=== PATIENT | female | born 1985 | race Caucasian/White ===

== ENCOUNTER 2016-08-28 09:07 | Emergency (ER) | payer OTHER ==
--- NOTE | 2016-08-28 09:19 | ED Physician Documentation ---
General Adult - HISTORIAN Historian: patient, paramedics - HPI Stated Complaint: seizure Chief Complaint: General Adult Additional Information: Had "non-epileptic" seizure at work. Just wanted to go homr after, but work automayically calls ambulance. Says she is under a lot of stress. - ROS CONST: no problems - PAST HX Past History: other (epileptic and non-epileptic seizures) Surgeries/Procedures: other (PE tubes, mandibular oosteotomy, left wrist for "tendonitis") Allergies/Adverse Reactions: Allergies Allergy/AdvReac Type Severity Reaction Status Date / Time phosphenytoin AdvReac Intermediate Shortness Uncoded 08/28/16 09:13 of Breath Home Medications: Ambulatory Orders Medication Instructions Recorded Carbamazepine [Carbatrol] 300 mg PO BID 09/11/13 Mirtazapine [Remeron] 15 mg PO HS 09/11/13 Topiramate [Topamax] 50 mg PO D 07/26/15 Topiramate [Topamax] 100 mg PO HS 07/26/15 Citalopram Hydrobromide [Celexa] 40 mg PO QD #30 tablet 10/02/15 Lacosamide [Vimpat] 100 mg PO BID 01/10/16 - SOCIAL HX Smoking History: quit greater than 1 year, cigarettes Alcohol Use: none Drug Use: none - FAMILY HX Family History: No - VITAL SIGNS Vital Signs: Vital Signs Temp Pulse Resp BP Pulse Ox 136/73 02/08/16 08:54 - REVIEWED ASSESSMENTS Nursing Assessment Reviewed: Yes Vitals Reviewed: Yes General Adult Physical Exam - PHYSICAL EXAM GENERAL APPEARANCE: no distress EENT: eye inspection normal, ENT inspection normal, pharynx normal (Mallampat 2) , YOBANI NECK: normal inspection, supple RESPIRATORY: no resp distress, breath sounds normal CVS: reg rate & rhythm, heart sounds normal, no murmur RECTAL: deferred BACK: normal inspection SKIN: warm/dry, normal color EXTREMITIES: no evidence of injury, no edema, other (L leg shorter, wearing custom shoe) NEURO: CN's nml as tested, motor nml, sensation nml, other (reflexes 2+ throughout) Discharge Clincal Impression: Pseudoseizure Home Medications: Ambulatory Orders Carbamazepine [Carbatrol] 300 mg PO BID 09/11/13 Mirtazapine [Remeron] 15 mg PO HS 01/15/14 Topiramate [Topamax] 50 mg PO D 07/26/15 Topiramate [Topamax] 100 mg PO HS 07/26/15 Citalopram Hydrobromide [Celexa] 40 mg PO QD #30 tablet 10/02/15 Lacosamide [Vimpat] 100 mg PO BID 01/10/16 Condition: Good Disposition: 01 HOME, SELF-CARE Decision to Admit: NO Decision Time: 09:20
[2016-08-28 09:36] VITALS: BP 108/76
== END 2016-08-28 09:34 | disposition home or self-care (01) ==
LOC: ED 09:07
DX: G40.89 Other seizures (principal)
CPT/HCPCS: 99282; 99284

== ENCOUNTER 2016-09-05 08:22 | Emergency (ER) | payer OTHER ==
[2016-09-05] MEDS: LORazepam 1 MG TABLET PO ONE (08:45)
--- NOTE | 2016-09-05 08:49 | ED Physician Documentation ---
Seizure - HISTORIAN Historian: patient, paramedics - HPI Stated Complaint: Seizure Chief Complaint: Seizure Additional Information: seizure at work-felt it coming on lay down,seized for 4 min-tnsf ed via ems. they roport have tnsf this t for similar several time-have never seen her seize or being post ictal Last known Well Date: 09/05/16 Last Known Well Time: 08:00 Last known Well Code/Unknown Code: Known Witnessed By: bystander Preceding Symptoms: denies: recent illness, recent alcohol intake, recent drug use, sleep deprivation Character of Seizure(s): unresponsiveness, "shaking all over" Location of Injury: none Further Comments: no - ROS NEURO/PSYCH: headache (very mild-is on her seizure meds as directed by her neurologists) EYES/ENT: none CVS/RESP: none GI/: denies: adominal pain MS/SKIN/LYMPH: none - PAST HX Previous seizure/seizure disorder: long-standing, occasional Etiology: idiopathic Other History: psychiatric disorder (anxiety depdression seizures ) Immunizations: denies: influenza Allergies/Adverse Reactions: Allergies Allergy/AdvReac Type Severity Reaction Status Date / Time phosphenytoin AdvReac Intermediate Shortness Uncoded 09/05/16 08:31 of Breath Home Medications: Ambulatory Orders Medication Instructions Recorded Carbamazepine [Carbatrol] 300 mg PO BID 09/11/13 Mirtazapine [Remeron] 15 mg PO HS 09/11/13 Topiramate [Topamax] 50 mg PO D 07/26/15 Topiramate [Topamax] 100 mg PO HS 07/26/15 Citalopram Hydrobromide [Celexa] 40 mg PO QD #30 tablet 10/02/15 Lacosamide [Vimpat] 100 mg PO BID 01/10/16 - SOCIAL HX Smoking History: quit greater than 1 year Alcohol Use: none Drug Use: none - FAMILY HX Family History: none - VITAL SIGNS Vital Signs: Vital Signs Temp Pulse Resp BP Pulse Ox 98.1 F 86 18 130/70 98 09/05/16 08:32 09/05/16 08:32 09/05/16 08:32 09/05/16 08:32 09/05/16 08:32 - REVIEWED ASSESSMENTS Nursing Assessment Reviewed: Yes Vitals Reviewed: Yes ED Results Lab/Radiology - Radiology Radiology Impressions: cxr= no apparent acute disease - Orders Orders: ED Orders Category Date Time Status LORazepam [Ativan] Med 09/05/16 08:45 Discontinued 0.5 mg PO NOW ONE Seizure Physical Exam - Physical Exam General Appearance: no acute distress. No: anxious, lethargic, convulsing Altered Mental Status Higher Functions: alert EENT: nml eye inspection Neck/Back: normal inspection Respiratory: no resp. distress, breath sounds nml CVS: reg rate & rhythm Abdomen: non-tender Skin: warm/dry, normal color. No: cyanosis, diaphoresis Extremities: normal range of motion Observed Seizure Activity in ED: other (not post ictal on ed arrival. appears stotally asymptomatic. will geve small prev dose of ativan) Discharge Clincal Impression: seizure Home Medications: Ambulatory Orders Carbamazepine [Carbatrol] 300 mg PO BID 09/11/13 Mirtazapine [Remeron] 15 mg PO HS 09/11/13 Topiramate [Topamax] 50 mg PO D 07/26/15 Topiramate [Topamax] 100 mg PO HS 07/26/15 Citalopram Hydrobromide [Celexa] 40 mg PO QD #30 tablet 10/02/15 Lacosamide [Vimpat] 100 mg PO BID 01/10/16 Comments: home w/fiance-will observe her closely. no work until tomorrow Condition: Good Disposition: 01 HOME, SELF-CARE Decision to Admit: NO Decision Time: 09:45
[2016-09-05 09:51] VITALS: BP 92/49
== END 2016-09-05 09:50 | disposition home or self-care (01) ==
LOC: ED 08:22
DX: R56.9 Unspecified convulsions (principal)
CPT/HCPCS: 99283

== ENCOUNTER 2016-09-29 08:27 | Emergency (ER) | payer OTHER ==
[2016-09-29 08:51] VITALS: BP 134/77
--- NOTE | 2016-09-29 08:57 | ED Physician Documentation ---
General Adult - HISTORIAN Historian: patient, friend - HPI Stated Complaint: back pain and sore throat Chief Complaint: General Adult Additional Information: lko back pain sor e throat Onset: days ago (back x 3days worse 0300 last noct-no injuries - has recurrent. also sore throat) Timing: still present, worse Severity: moderate - ROS CONST: no problems EYES/ENT: none CVS/RESP: none GI/: none MS/SKIN/LYMPH: back pain (lo back pain no radiation no urine or bowel c/o-has had simiar many times in past usually responds med tx) - PAST HX Past History: other (seizures depression) Surgeries/Procedures: none Immunizations: UTD Allergies/Adverse Reactions: Allergies Allergy/AdvReac Type Severity Reaction Status Date / Time phosphenytoin AdvReac Intermediate Shortness Uncoded 09/29/16 08:48 of Breath Home Medications: Ambulatory Orders Medication Instructions Recorded Carbamazepine [Carbatrol] 300 mg PO BID 09/11/13 Mirtazapine [Remeron] 15 mg PO HS 09/11/13 Topiramate [Topamax] 50 mg PO D 07/26/15 Topiramate [Topamax] 100 mg PO HS 07/26/15 Citalopram Hydrobromide [Celexa] 40 mg PO QD #30 tablet 10/02/15 Lacosamide [Vimpat] 100 mg PO BID 01/10/16 - SOCIAL HX Smoking History: non-smoker Alcohol Use: none Drug Use: none - FAMILY HX Family History: No - VITAL SIGNS Vital Signs: Vital Signs Temp Pulse Resp BP Pulse Ox 98 F 96 H 16 134/77 98 09/29/16 08:39 09/29/16 08:39 09/29/16 08:39 09/29/16 08:39 09/29/16 08:39 - REVIEWED ASSESSMENTS Nursing Assessment Reviewed: Yes Vitals Reviewed: Yes ED Results Lab/Radiology - Lab Results Lab Results: Lab Results 09/29/16 08:55 Group A Strep Screen Positive H (NEGATIVE) - Radiology Radiology Impressions: rapid strept is positive so will tx - Orders Orders: ED Orders Category Date Time Status Rapid Strep [GRP A STREP SCREEN] Stat Lab 09/29/16 Ordered General Adult Physical Exam - PHYSICAL EXAM GENERAL APPEARANCE: mild distress EENT: eye inspection normal, TM's nml, pharyngeal erythema, TM erythema (mild), other (mild ant cervical adenopathy) NECK: normal inspection RESPIRATORY: no resp distress, breath sounds normal CVS: reg rate & rhythm, heart sounds normal ABDOMEN: soft, no distension, non-tender BACK: CVA tenderness (R), CVA tenderness (L) (lo back---very mild pos slr at 60- 80-degrees) SKIN: warm/dry, normal color EXTREMITIES: non-tender, normal range of motion, no evidence of injury, no edema NEURO: oriented X3, motor nml, sensation nml, mood/affect nml Discharge Clincal Impression: Streptococcal sore throat, ACUTE EXACERBATED CHRONIC LOW BACK PAIN Home Medications: Ambulatory Orders Carbamazepine [Carbatrol] 300 mg PO BID 09/11/13 Mirtazapine [Remeron] 15 mg PO HS 09/11/13 Topiramate [Topamax] 50 mg PO D 07/26/15 Topiramate [Topamax] 100 mg PO HS 07/26/15 Citalopram Hydrobromide [Celexa] 40 mg PO QD #30 tablet 10/02/15 Lacosamide [Vimpat] 100 mg PO BID 01/10/16 Comments: home tx as directed Condition: Good Disposition: 01 HOME, SELF-CARE Decision to Admit: NO Decision Time: 09:06
== END 2016-09-29 09:25 | disposition home or self-care (01) ==
LOC: ED 08:27
DX: J02.0 Streptococcal pharyngitis (principal); M54.5 Low back pain
CPT/HCPCS: 87880; 99282; 99283

== ENCOUNTER 2016-10-18 09:25 | Emergency (ER) | payer OTHER ==
--- NOTE | 2016-10-18 09:39 | ED Physician Documentation ---
Seizure - HISTORIAN Historian: patient - HPI Stated Complaint: "Seizure" Chief Complaint: Seizure Timing/Onset/Duration: unknown duration (patient estimates last about 3 minutes) Last known Well Date: 10/18/16 Last Known Well Time: 08:54 Last known Well Code/Unknown Code: Known Witnessed By: bystander Preceding Symptoms: other (funny feeling in her stomach). denies: fever, chills Character of Seizure(s): "shaking all over" Postictal Symptoms: confusion Location of Injury: none Further Comments: yes (John has a 20 year history of seiures. Has been ahving seizures about 3-4 times a week. Patient states that she has two differenct types of seizures, absence seizure- has about 7-8 times, has 3-4 tonic clonic siezure involving her right side a week. Has seen her neuologist last month with no changes in medications.) - ROS NEURO/PSYCH: denies: headache - PAST HX Previous seizure/seizure disorder: frequent Etiology: etiology (unkown) Other History: other (depession) Surgeries/Procedures: none Immunizations: denies: influenza Allergies/Adverse Reactions: Allergies Allergy/AdvReac Type Severity Reaction Status Date / Time fosphenytoin sodium Allergy Verified 10/18/16 09:30 [From Cerebyx] phosphenytoin AdvReac Intermediate Shortness Uncoded 09/29/16 08:48 of Breath Home Medications: Ambulatory Orders Medication Instructions Recorded Carbamazepine [Carbatrol] 300 mg PO BID 09/11/13 Mirtazapine [Remeron] 15 mg PO HS 09/11/13 Topiramate [Topamax] 50 mg PO D 07/26/15 Topiramate [Topamax] 100 mg PO HS 07/26/15 Citalopram Hydrobromide [Celexa] 40 mg PO QD #30 tablet 10/02/15 Lacosamide [Vimpat] 100 10/18/16 Methocarbamol [Methocarbamol] 750 10/18/16 - SOCIAL HX Smoking History: non-smoker Alcohol Use: occasionally Drug Use: none - FAMILY HX Family History: seizure (brother) - VITAL SIGNS Vital Signs: Vital Signs Temp Pulse Resp BP Pulse Ox 97.1 F L 98 H 18 130/66 99 10/18/16 09:25 10/18/16 09:25 10/18/16 09:25 10/18/16 09:25 10/18/16 09:25 - REVIEWED ASSESSMENTS Nursing Assessment Reviewed: Yes Vitals Reviewed: Yes Progress - Progress Progress: Patient had a seizure that was witness by staff. Appeared to be a pseudoseizure. Jerking of the right upper and loer extremtites, neck/head was jerking back and forth in both directions. had occasional jerking in both upper extremities that occurred at the same time. 10:35 No further seizure activity ED Results Lab/Radiology - Lab Results Lab Results: Lab Results 10/18/16 10/18/16 10:35 10:15 Sodium 144 mmol/L mmol/L (136-145) Potassium 3.8 mmol/L mmol/L (3.5-5.0) Chloride 109 mmol/L mmol/L (98-110) Carbon Dioxide 18 mmol/L L mmol/L (20-32) BUN 13 mg/dL mg/dL (10-26) Creatinine 0.6 mg/dL mg/dL (0.4-1.5) Estimated Creat Clear 219 Est GFR ( Amer) > 60 (60 - ) Est GFR (Non-Af Amer) > 60 (60 - ) Glucose 94 mg/dL mg/dL (70-99) Calcium 8.9 mg/dL mg/dL (8.5-10.5) Total Bilirubin 0.3 mg/dL mg/dL (0.2-1.2) AST 16 U/L U/L (0-41) ALT 16 U/L U/L (0-45) Alkaline Phosphatase 68 U/L U/L (46-116) Total Protein 6.8 g/dL g/dL (6.0-8.5) Albumin 4.3 g/dL g/dL (3.0-5.5) Opiates Screen Negative (2000 ng/mL) Oxycodone Screen Negative ng/mL ng/mL (<100) Methadone Screen Negative ng/mL ng/mL (<300) POC Urine Barbiturates Negative ng/mL ng/mL (<300) Amphetamines Screen Negative ng/mL ng/mL (<1000) POC Ur Methamphetamine Negative ng/mL ng/mL (<1000) MDMA Negative ng/mL ng/mL (<500) Benzodiazepines Screen Negative ng/mL ng/mL (<300) Cocaine Screen Negative ng/mL ng/mL (<150) Marijuana (THC) Screen Negative ng/mL ng/mL (<50) - Orders Orders: ED Orders Category Date Time Status CARBAMAZEPINE LEVEL Routine Lab 10/18/16 10:15 Received CMP Routine Lab 10/18/16 10:15 Completed Urine drug screen [DRUG SCREEN URINE MEDICAL ONLY] Lab 10/18/16 10:35 Completed Routine Seizure Physical Exam - Physical Exam General Appearance: no acute distress, alert, mild distress Altered Mental Status Higher Functions: alert, oriented x3, no evidence of acute CVA, mood/affect nml, abnml respond to command EENT: nml eye inspection, PERRL. No: tongue abrasion, laceration, oral lesions Neck/Back: normal inspection, thyroid normal, supple Respiratory: no resp. distress, breath sounds nml, no evidence of rib injury. No: wheezes, rales, rhonchi CVS: reg rate & rhythm, heart sounds normal, equal pulses, no murmur Abdomen: non-tender, no organomegaly, nml bowel sounds Skin: warm/dry, normal color Extremities: normal range of motion, non-tender Observed Seizure Activity in ED: focal (?? right upper and lower jerking). No: eyes deviated to right, eyes deviated to left, head turned right, head turned left - Nexus Criteria Neg Nexus Criteria: Nexus criteria neg Discharge Clincal Impression: Seizure disorder, Seizure Additional Instructions: See your primary care provider or neurologist within the next week to discuss your seizure activity. Continue taking your anticonvulsant medication as directed. No driving. Home Medications: Ambulatory Orders Carbamazepine [Carbatrol] 300 mg PO BID 09/11/13 Mirtazapine [Remeron] 15 mg PO HS 09/11/13 Topiramate [Topamax] 50 mg PO D 07/26/15 Topiramate [Topamax] 100 mg PO HS 07/26/15 Citalopram Hydrobromide [Celexa] 40 mg PO QD #30 tablet 10/02/15 Lacosamide [Vimpat] 100 10/18/16 Methocarbamol [Methocarbamol] 750 10/18/16 Condition: Stable Disposition: 01 HOME, SELF-CARE Decision to Admit: NO Date of Decison to Admit: 10/18/16 Decision Time: 10:56
[2016-10-18 10:42] LABS: eGFR (African) > 60; eGFR (Non-African) > 60
[2016-10-18 10:51] LABS: AMPHETAMINE NEGATIVE ng/mL (<1000); BARBITURATES NEGATIVE ng/mL (<300); CANNABINOIDS NEGATIVE ng/mL (<50); COCAINE NEGATIVE ng/mL (<150); METHAMPHETAMINE NEGATIVE ng/mL (<1000); METHYLENEDIOXYMETHAMPHETAMINE NEGATIVE ng/mL (<500)
[2016-10-18 11:18] VITALS: BP 120/71
== END 2016-10-18 11:05 | disposition home or self-care (01) ==
LOC: ED 09:25
DX: G40.909 Epilepsy, unspecified, not intractable, without status epilepticus (principal)
CPT/HCPCS: 36415; 80053; 80156; 80377; 99283; G0481

== ENCOUNTER 2016-10-21 09:19 | Emergency (ER) | payer OTHER ==
[2016-10-21] MEDS ORDERED: LORazepam 2 MG/ML VIAL ONE (09:31)
[2016-10-21] MEDS ORDERED: LORazepam 2 MG/ML VIAL IVP ONE (09:37)
[2016-10-21 09:55] LABS: BASOPHILS % 0.4 (0.0-1.5); EOSINOPHILS % 2.1 % (0.0-6.8); LYMPHOCYTES # 1.4 # k/uL (0.6-4.0); MEAN CORPUSCULAR HEMOGLOBIN 29.7 pg (28.0-34.0); MONOCYTES # 0.2 # k/uL (0.0-0.9); MONOCYTES % 5.1 % (0.0-11.0); NEUTROPHILS # 2.4 # k/uL (1.4-7.7)
[2016-10-21 10:14] LABS: eGFR (African) > 60; eGFR (Non-African) > 60
[2016-10-21 10:32] LABS: APPEARANCE,URINE Clear (CLEAR); COLOR,URINE Yellow (YELLOW); OCCULT BLOOD,URINE Trace-intact (NEGATIVE); UROBILINOGEN URINE 0.2 Eu (0.2-1.0)
[2016-10-21 10:34] LABS: AMPHETAMINE NEGATIVE ng/mL (<1000); BARBITURATES NEGATIVE ng/mL (<300); CANNABINOIDS NEGATIVE ng/mL (<50); COCAINE NEGATIVE ng/mL (<150); METHAMPHETAMINE NEGATIVE ng/mL (<1000); METHYLENEDIOXYMETHAMPHETAMINE NEGATIVE ng/mL (<500)
[2016-10-21] MEDS ORDERED: HALOPERIDOL LACTATE 5 MG/ML VIAL IM ONE ×2 (10:46→10:54)
[2016-10-21 12:33] VITALS: BP 120/72
--- NOTE | 2016-10-21 14:26 | ED Physician Documentation ---
Seizure - HPI Stated Complaint: Seizure activity Chief Complaint: Seizure Additional Information: hx of multiple types, under the care of a neurologist Timing/Onset/Duration: single episode Last known Well Date: 10/21/16 Last Known Well Time: 08:00 Last known Well Code/Unknown Code: Known Witnessed By: other (coworkers) Character of Seizure(s): "shaking all over". denies: incontinence of urine, incontinence of stool Postictal Symptoms: none Location of Injury: none Further Comments: no - ROS NEURO/PSYCH: other (seizure disorder) EYES/ENT: none CVS/RESP: none GI/: denies: adominal pain, nausea, vomiting, diarrhea, black stools, problems urinating MS/SKIN/LYMPH: none - PAST HX Previous seizure/seizure disorder: frequent Etiology: other (unknown) Other History: other (none) Surgeries/Procedures: none Immunizations: referred to PCP Allergies/Adverse Reactions: Allergies Allergy/AdvReac Type Severity Reaction Status Date / Time fosphenytoin sodium Allergy Verified 10/21/16 10:11 [From Cerebyx] phosphenytoin AdvReac Intermediate Shortness Uncoded 10/21/16 10:11 of Breath Home Medications: Ambulatory Orders Medication Instructions Recorded Carbamazepine [Carbatrol] 300 mg PO BID 09/11/13 Mirtazapine [Remeron] 15 mg PO HS 09/11/13 Topiramate [Topamax] 50 mg PO D 07/26/15 Topiramate [Topamax] 100 mg PO HS 07/26/15 Citalopram Hydrobromide [Celexa] 40 mg PO QD #30 tablet 10/02/15 Lacosamide [Vimpat] 100 mg PO D 10/18/16 Methocarbamol [Methocarbamol] 750 mg PO D 10/18/16 - SOCIAL HX Smoking History: non-smoker Alcohol Use: none Drug Use: none - FAMILY HX Family History: none - VITAL SIGNS Vital Signs: Vital Signs Temp Pulse Resp BP Pulse Ox 72 18 120/72 99 10/21/16 12:32 10/21/16 12:32 10/21/16 12:32 10/21/16 12:32 - REVIEWED ASSESSMENTS Nursing Assessment Reviewed: Yes Vitals Reviewed: Yes Progress - Results/Orders Results/Orders: ct head, cbc, cmp, uds, ua , ucg, cxr ordered - Progress Progress: Pt. given 1 mg ativan ivp with immediate and complete resolution of symptoms, pt. ambulating and conversing in sentences. 1 hour later sumptoms resatrted completely resolved and stayed resolved after 10 mg Haldol im. Critical Care Note - Critical Care Note Total Time (mins): 0 ED Results Lab/Radiology - Lab Results Lab Results: Lab Results 10/21/16 10/21/16 10/21/16 10:50 10:25 10:25 WBC RBC Hgb Hct MCV MCH MCHC RDW Plt Count Neut % (Auto) Lymph % (Auto) [place] % (Auto) Eos % (Auto) Baso % (Auto) Neut # Lymph # [place] # Eos # Baso # Reactive Lymphs % Reactive Lymphs # Sodium Potassium Chloride Carbon Dioxide BUN Creatinine Estimated Creat Clear Est GFR ( Amer) Est GFR (Non-Af Amer) Glucose Calcium Total Bilirubin AST ALT Alkaline Phosphatase Total Protein Albumin Urine Color Yellow (YELLOW) Urine Appearance Clear (CLEAR) Urine pH 7.0 (5.0 - 8.0) Ur Specific [place] 1.025 (1.010-1.030) Urine Protein Negative mg/dL mg/dL (NEGATIVE) Urine Ketones Negative mg/dL mg/dL (NEGATIVE) Urine Occult Blood Trace-intact (NEGATIVE) Urine Nitrite Negative (NEGATIVE) Urine Bilirubin Negative (NEGATIVE) Urine Urobilinogen 0.2 Eu Eu (0.2-1.0) Ur Leukocyte Esterase Trace (NEGATIVE) Urine RBC 0-2 (0-2 HPF) Urine WBC 2-5 (0-5 HPF) Ur Squamous Epith Cells Few (NEG-FEW) Urine Bacteria Few H (NEGATIVE) Urine Mucus Present H (NEGATIVE) Urine Glucose 1+ mg/dL H mg/dL (NEGATIVE) Urine HCG, Qual Negative (NEGATIVE) Opiates Screen Negative (2000 ng/mL) Oxycodone Screen Negative ng/mL ng/mL (<100) Methadone Screen Negative ng/mL ng/mL (<300) POC Urine Barbiturates Negative ng/mL ng/mL (<300) Amphetamines Screen Negative ng/mL ng/mL (<1000) POC Ur Methamphetamine Negative ng/mL ng/mL (<1000) MDMA Negative ng/mL ng/mL (<500) Benzodiazepines Screen Negative ng/mL ng/mL (<300) Cocaine Screen Negative ng/mL ng/mL (<150) Marijuana (THC) Screen Negative ng/mL ng/mL (<50) Ethyl Alcohol 10/21/16 10/21/16 09:50 09:50 WBC 4.10 K/ul K/ul (4.00-12.00) RBC 4.20 M/ul M/ul (3.90-5.20) Hgb 12.5 g/dL g/dL (12.0-16.0) Hct 38.5 % % (34.5-46.5) MCV 91.5 fl fl (80.0-100.0) MCH 29.7 pg pg (28.0-34.0) MCHC 32.4 g/dL g/dL (30.0-36.0) RDW 12.8 % % (11.3-14.3) Plt Count 270 K/mm3 K/mm3 (130-400) Neut % (Auto) 57.9 % % (39.0-79.0) Lymph % (Auto) 33.1 % % (16.0-50.0) [place] % (Auto) 5.1 % % (0.0-11.0) Eos % (Auto) 2.1 % % (0.0-6.8) Baso % (Auto) 0.4 (0.0-1.5) Neut # 2.4 # k/uL # k/uL (1.4-7.7) Lymph # 1.4 # k/uL # k/uL (0.6-4.0) [place] # 0.2 # k/uL # k/uL (0.0-0.9) Eos # 0.1 # k/uL # k/uL (0.0-0.6) Baso # 0.0 # k/uL # k/uL (0.0-0.5) Reactive Lymphs % 1.5 % % (0.0-5.0) Reactive Lymphs # 0.1 # k/uL # k/uL (0.0-0.8) Sodium 142 mmol/L mmol/L (136-145) Potassium 3.6 mmol/L mmol/L (3.5-5.0) Chloride 112 mmol/L H mmol/L (98-110) Carbon Dioxide 20 mmol/L mmol/L (20-32) BUN 17 mg/dL mg/dL (10-26) Creatinine 0.7 mg/dL mg/dL (0.4-1.5) Estimated Creat Clear 217 Est GFR ( Amer) > 60 (60 - ) Est GFR (Non-Af Amer) > 60 (60 - ) Glucose 81 mg/dL mg/dL (70-99) Calcium 8.7 mg/dL mg/dL (8.5-10.5) Total Bilirubin 0.2 mg/dL mg/dL (0.2-1.2) AST 15 U/L U/L (0-41) ALT 15 U/L U/L (0-45) Alkaline Phosphatase 69 U/L U/L (46-116) Total Protein 6.3 g/dL g/dL (6.0-8.5) Albumin 4.3 g/dL g/dL (3.0-5.5) Urine Color Urine Appearance Urine pH Ur Specific [place] Urine Protein Urine Ketones Urine Occult Blood Urine Nitrite Urine Bilirubin Urine Urobilinogen Ur Leukocyte Esterase Urine RBC Urine WBC Ur Squamous Epith Cells Urine Bacteria Urine Mucus Urine Glucose Urine HCG, Qual Opiates Screen Oxycodone Screen Methadone Screen POC Urine Barbiturates Amphetamines Screen POC Ur Methamphetamine MDMA Benzodiazepines Screen Cocaine Screen Marijuana (THC) Screen Ethyl Alcohol < 10.0 MG/DL MG/DL (<10.0) - Radiology Radiology Impressions: ct head neg, cxr neg - Orders Orders: ED Orders Category Date Time Status CHEST 1 VIEW [RAD] Routine Exams 10/21/[address] BRAIN W/O CONTRAST Stat Exams 10/21/16 Ordered CBC/PLATELET/DIFF Routine Lab 10/21/16 09:50 Completed CMP Routine Lab 10/21/16 09:50 Completed DRUG SCREEN URINE MEDICAL ONLY Routine Lab 10/21/16 10:25 Completed ETHANOL MEDICAL USE ONLY Routine Lab 10/21/16 09:50 Completed URINALYSIS Routine Lab 10/21/16 10:25 Completed URINE HCG Routine Lab 10/21/16 10:50 Completed Haloperidol Lactate [Haldol] Med 10/21/16 10:46 Discontinued 10 mg IM .STK-MED ONE Haloperidol Lactate [Haldol] Med 10/21/16 10:54 Discontinued 10 mg IM NOW ONE LORazepam [Ativan] Med 10/21/16 09:37 Discontinued 1 mg IVP NOW ONE LORazepam [Ativan] Med 10/21/16 09:31 Discontinued 2 mg .ROUTE .STK-MED ONE Seizure Physical Exam - Physical Exam General Appearance: alert, convulsing Altered Mental Status Higher Functions: alert, oriented x3, other (converses during pseudoseizure, follows directions during pseudoseizure, moves dropped hand away from face, lowers leg to cot) EENT: nml eye inspection, PERRL. No: tenderness, swelling, ecchymosis Neck/Back: normal inspection, thyroid normal Respiratory: no resp. distress, breath sounds nml, no evidence of rib injury CVS: reg rate & rhythm, heart sounds normal, equal pulses, no murmur, no gallop , PMI nml, no JVD Abdomen: non-tender, no organomegaly, nml bowel sounds, no distention Skin: warm/dry, normal color Extremities: normal range of motion, non-tender, normal inspection, no pedal edema, no calf tenderness, normal capillary refill, pelvis stable Observed Seizure Activity in ED: generalized, awake - Nexus Criteria Neg Nexus Criteria: Nexus criteria neg Discharge Clincal Impression: Pseudoseizures Referrals: Tay Manning MD [Primary Care Provider] - 2 Days Home Medications: Ambulatory Orders Carbamazepine [Carbatrol] 300 mg PO BID 09/11/13 Mirtazapine [Remeron] 15 mg PO HS 09/11/13 Topiramate [Topamax] 50 mg PO D 07/26/15 Topiramate [Topamax] 100 mg PO HS 07/26/15 Citalopram Hydrobromide [Celexa] 40 mg PO QD #30 tablet 10/02/15 Lacosamide [Vimpat] 100 mg PO D 10/18/16 Methocarbamol [Methocarbamol] 750 mg PO D 10/18/16 Comments: pt. discharged to care of in stable and nonseizure status with scripts to increase Vimpat to 200 mg p.o. bid and add Elavil 25 mg p.o. hs. 2 weeks of each with no refill, generic. Follow up in next 2 weeks with her neurologist. Condition: Stable Disposition: 01 HOME, SELF-CARE Decision to Admit: NO Decision Time: 12:30
--- NOTE | 2016-10-21 15:00 | Diagnostic Imaging Report ---
[facility] [id number] [facility] [address] [id number] Report Submission Date: Oct 21, 2016 11:05:45 AM MICROBIOLOGY TECHNICIAN Patient Study Name: MARY BENITES Date: Oct 21, 2016 9:55:23 AM MICROBIOLOGY TECHNICIAN Modality Type: CT\SR Gender: F Description: CT BRAIN W/O CONTRAST : 87 Institution: [facility] Physician KRISTINA HUIZAR - BRENNEN CT HEAD WO CONTRAST History: Seizure Technique: Standard noncontrast CT was performed with contiguous axial images acquired from skull base to vertex. Findings: There is no acute extra-axial fluid collection. Ventricles are of normal size, shape, and morphology. No mass effect or midline shift is present. No evidence of acute hemorrhage. The land-white matter differentiation is normal. The visualized portions of the orbits, and paranasal sinuses, and mastoids are normal. No fractures are identified. Impression: 1. Normal non contrast brain CT. Electronically signed on Oct 21, 2016 11:05:45 AM MICROBIOLOGY TECHNICIAN by: Theo Hartman [facility] SYSTEMBreana
--- NOTE | 2016-10-21 15:01 | Diagnostic Imaging Report ---
[facility] [id number] [facility].[address] [id number] Report Submission Date: Oct 21, 2016 11:06:03 AM SOAP WORKER Patient Study Name: MARY BENITES Date: Oct 21, 2016 10:09:56 AM SOAP WORKER Modality Type: CR Gender: F Description: CHEST : 87 Institution: [facility] Physician KRISTINA HUIZAR - ER Chest, 1 view History: SEIZURE Findings: The heart size is normal. The lungs are clear. There is no pleural effusion or pneumothorax identified. The osseous structures are normal. Impression: 1. No acute pulmonary disease. Electronically signed on Oct 21, 2016 11:06:03 AM SOAP WORKER by: Theo HERNÁNDEZ
== END 2016-10-21 12:32 | disposition home or self-care (01) ==
LOC: ED 09:19
DX: R56.9 Unspecified convulsions (principal)
CPT/HCPCS: 70450; 71010; 80053; 80320; 80377; 81002; 81025; 85025; J1630; J2060; 96372; 96374; 99284; G0480; G0481

== ENCOUNTER 2016-10-28 09:19 | Emergency (ER) | payer OTHER ==
--- NOTE | 2016-10-28 09:33 | ED Physician Documentation ---
General Adult - HPI Stated Complaint: "Shaking" Chief Complaint: General Adult Additional Information: She said she has a "shaking seizure" that causes her to shake, but has no other neurologic symptoms. She says she has sevral seizure disorders and sees a neurologist regularly. Is on seizure meds and has not missed a dose. She has these Shaking seizures 3-4 times weekly and her neurologist has set up some additional testing for her. Onset: minutes Timing: gone now Severity: mild Modifying Factors: she says she feels butterflies in her stomach before they start. Context: she usually has these at work Further Comments: no Last known Well Date: 10/28/16 - ROS CONST: no problems EYES/ENT: none CVS/RESP: none GI/: none MS/SKIN/LYMPH: none NEURO/PSYCH: denies: headache, fainting, dizziness, tingling, numbness, difficulty walking, difficulty with speech - PAST HX Past History: other (seizure disorders) Immunizations: UTD Allergies/Adverse Reactions: Allergies Allergy/AdvReac Type Severity Reaction Status Date / Time fosphenytoin sodium Allergy Verified 10/28/16 09:41 [From Cerebyx] phosphenytoin AdvReac Intermediate Shortness Uncoded 10/28/16 09:41 of Breath Home Medications: Ambulatory Orders Medication Instructions Recorded Carbamazepine [Carbatrol] 300 mg PO BID 09/11/13 Mirtazapine [Remeron] 15 mg PO HS 09/11/13 Topiramate [Topamax] 50 mg PO D 07/26/15 Topiramate [Topamax] 100 mg PO HS 07/26/15 Citalopram Hydrobromide [Celexa] 40 mg PO QD #30 tablet 10/02/15 Lacosamide [Vimpat] 100 mg PO D 10/18/16 Methocarbamol [Methocarbamol] 750 mg PO D 10/18/16 - SOCIAL HX Smoking History: non-smoker Alcohol Use: none Drug Use: none - FAMILY HX Family History: No - VITAL SIGNS Vital Signs: Vital Signs Temp Pulse Resp BP Pulse Ox 98.1 F 86 18 100/75 99 10/28/16 09:20 10/28/16 09:20 10/28/16 09:20 10/28/16 09:20 10/28/16 09:20 - REVIEWED ASSESSMENTS Nursing Assessment Reviewed: Yes Vitals Reviewed: Yes Progress - Results/Orders Results/Orders: Her symptoms had resolved prior to arrival, and have not returned. Head CT was negative. We'll discharge her to follow up with Neurology as scheduled. ED Results Lab/Radiology - Radiology Radiology Impressions: CT brain shows no acute process. General Adult Physical Exam - PHYSICAL EXAM GENERAL APPEARANCE: no distress EENT: eye inspection normal, ENT inspection normal, pharynx normal, no signs of dehydration, no nystagmus NECK: normal inspection, thyroid normal, supple. No: stiff neck, carotid bruit RESPIRATORY: no resp distress, chest non-tender, breath sounds normal CVS: reg rate & rhythm, heart sounds normal, equal pulses, no murmur ABDOMEN: soft, no distension, non-tender BACK: normal inspection SKIN: warm/dry, normal color EXTREMITIES: non-tender, normal range of motion NEURO: oriented X3, CN's nml as tested, motor nml, sensation nml, mood/affect nml, cognition normal Discharge Clincal Impression: Pseudoseizures Home Medications: Ambulatory Orders Carbamazepine [Carbatrol] 300 mg PO BID 09/11/13 Mirtazapine [Remeron] 15 mg PO HS 09/11/13 Topiramate [Topamax] 50 mg PO D 07/26/15 Topiramate [Topamax] 100 mg PO HS 07/26/15 Citalopram Hydrobromide [Celexa] 40 mg PO QD #30 tablet 10/02/15 Lacosamide [Vimpat] 100 mg PO D 10/18/16 Methocarbamol [Methocarbamol] 750 mg PO D 10/18/16 Condition: Good Disposition: 01 HOME, SELF-CARE Decision to Admit: NO Date of Decison to Admit: 10/28/16 Decision Time: 11:29
[2016-10-28 11:38] VITALS: BP 115/55
--- NOTE | 2016-10-28 13:00 | Diagnostic Imaging Report ---
[facility] [address] [facility] [address] [place] [address]. [id number] Report Submission Date: Oct 28, 2016 11:12:31 AM MEDICAL BILLING INSTRUCTOR Patient Study Name: MARY BENITES Date: Oct 28, 2016 10:49:51 AM MEDICAL BILLING INSTRUCTOR Modality Type: CT\SR Gender: F Description: CT BRAIN W/O CONTRAST : 87 Institution: [facility] Physician: [facility] Computed tomography of the head without contrast HISTORY: Seizure FINDINGS: Transverse brain sections are obtained without contrast. Comparison is made to the 10/21/2016 scan. Ventricles and sulci are normal in size. [place] differentiation is intact. There is no intracranial hemorrhage, mass effect, fluid collection, or skull lesion. Maxillofacial internal fixation hardware is observed bilaterally. IMPRESSION: Normal brain without change. Electronically signed on Oct 28, 2016 11:12:31 AM MEDICAL BILLING INSTRUCTOR by: Donavon HERNÁNDEZ
== END 2016-10-28 11:36 | disposition home or self-care (01) ==
LOC: ED 09:19
DX: R56.9 Unspecified convulsions (principal)
CPT/HCPCS: 70450; 99283

== ENCOUNTER 2016-11-18 09:30 | Emergency (ER) | payer OTHER ==
[2016-11-18] MEDS ORDERED: TOPIRAMATE 50 MG TABLET PO ONE (10:19)
[2016-11-18 10:47] VITALS: BP 120/60
--- NOTE | 2016-11-18 11:00 | ED Physician Documentation ---
Seizure - HISTORIAN Historian: patient - HPI Stated Complaint: S/P ? Seizure Chief Complaint: Seizure Additional Information: Right sided [place] seizure at work. Resolved. No LOC, no incontinence. Claims to be post ictal, no objective evidence of such. Timing/Onset/Duration: single episode, other (short duration) Last known Well Date: 11/18/16 Last Known Well Time: 08:00 Last known Well Code/Unknown Code: Unknown Witnessed By: bystander Preceding Symptoms: none Activity Prior to Seizure: working Character of Seizure(s): shaking in one area (right sided) Postictal Symptoms: none Location of Injury: none Further Comments: no - ROS NEURO/PSYCH: denies: headache, fainting, dizziness, anxiety, depression EYES/ENT: none CVS/RESP: none GI/: denies: adominal pain, nausea, vomiting, diarrhea, black stools, problems urinating MS/SKIN/LYMPH: none - PAST HX Previous seizure/seizure disorder: frequent Etiology: idiopathic Other History: psychiatric disorder (depression) Surgeries/Procedures: none Immunizations: referred to PCP Allergies/Adverse Reactions: Allergies Allergy/AdvReac Type Severity Reaction Status Date / Time fosphenytoin sodium Allergy Verified 10/28/16 09:41 [From Cerebyx] phosphenytoin AdvReac Intermediate Shortness Uncoded 10/28/16 09:41 of Breath Home Medications: Ambulatory Orders Medication Instructions Recorded Carbamazepine [Carbatrol] 300 mg PO BID 09/11/13 Mirtazapine [Remeron] 15 mg PO HS 09/11/13 Topiramate [Topamax] 50 mg PO D 07/26/15 Topiramate [Topamax] 100 mg PO HS 07/26/15 Citalopram Hydrobromide [Celexa] 40 mg PO QD #30 tablet 10/02/15 Lacosamide [Vimpat] 100 mg PO D 10/18/16 Methocarbamol [Methocarbamol] 750 mg PO D 10/18/16 - SOCIAL HX Smoking History: non-smoker Alcohol Use: none Drug Use: none - FAMILY HX Family History: none - VITAL SIGNS Vital Signs: Vital Signs Temp Pulse Resp BP Pulse Ox 97.1 F L 72 18 120/60 99 11/18/16 09:30 11/18/16 10:46 11/18/16 10:46 11/18/16 10:46 11/18/16 10:46 - REVIEWED ASSESSMENTS Nursing Assessment Reviewed: Yes Vitals Reviewed: Yes Progress - Results/Orders Results/Orders: no testing ordered - Progress Progress: pt. stable entire time in er, given Topamax 50 mg p.o. x 1 in ER Critical Care Note - Critical Care Note Total Time (mins): 0 ED Results Lab/Radiology - Lab Results Lab Results: no testing ordered - Radiology Radiology Impressions: no testing ordered - Orders Orders: ED Orders Category Date Time Status Topiramate [Topamax] Med 11/18/16 10:19 Discontinued 50 mg PO 1T ONE Seizure Physical Exam - Physical Exam General Appearance: no acute distress Altered Mental Status Higher Functions: alert, oriented x3, no evidence of acute CVA, mood/affect nml, eyes open EENT: nml eye inspection, PERRL Neck/Back: normal inspection, thyroid normal, supple Respiratory: no resp. distress, breath sounds nml, no evidence of rib injury CVS: reg rate & rhythm, heart sounds normal, equal pulses, no murmur, no gallop , PMI nml, no JVD, no friction rub Abdomen: non-tender, no organomegaly, nml bowel sounds, no distention Skin: warm/dry, normal color Extremities: normal range of motion, non-tender, normal inspection, no pedal edema, no calf tenderness, normal capillary refill Observed Seizure Activity in ED: other (no seizure activity observed) - Nexus Criteria Neg Nexus Criteria: Nexus criteria neg Discharge Clincal Impression: Seizure Referrals: Tay Manning MD [Primary Care Provider] - 2 Days Home Medications: Ambulatory Orders Carbamazepine [Carbatrol] 300 mg PO BID 09/11/13 Mirtazapine [Remeron] 15 mg PO HS 09/11/13 Topiramate [Topamax] 50 mg PO D 07/26/15 Topiramate [Topamax] 100 mg PO HS 07/26/15 Citalopram Hydrobromide [Celexa] 40 mg PO QD #30 tablet 10/02/15 Lacosamide [Vimpat] 100 mg PO D 10/18/16 Methocarbamol [Methocarbamol] 750 mg PO D 10/18/16 Comments: pt. discharged in stable condition with recommendation to increase Topamax to 100 mg p.o. bid Condition: Stable Disposition: 01 HOME, SELF-CARE Decision to Admit: NO Decision Time: 10:40
== END 2016-11-18 10:46 | disposition home or self-care (01) ==
LOC: ED 09:30
DX: R56.9 Unspecified convulsions (principal)
CPT/HCPCS: 99283; J3490

== ENCOUNTER 2017-04-02 14:07 | Emergency (ER) | payer OTHER ==
--- NOTE | 2017-04-02 14:27 | ED Physician Documentation ---
General Adult - HISTORIAN Historian: patient - HPI Stated Complaint: unwitnessed seizure Chief Complaint: General Adult Onset: minutes Timing: better Severity: moderate Further Comments: yes (Pt is a 31 yo female who states that she has had 4 seizures today, two at home, and then two at work at the [employer]. Seizure was unwitnessed. Pt states that she does not know the duration of the seizures. She states that she did not bang her head or injure herself, because she has partial seizures. Pt was not incontinent of bowel or bladder.) - ROS CONST: weakness EYES/ENT: none CVS/RESP: none GI/: none MS/SKIN/LYMPH: none NEURO/PSYCH: other (seizure) - PAST HX Past History: other (seizure) Allergies/Adverse Reactions: Allergies Allergy/AdvReac Type Severity Reaction Status Date / Time fosphenytoin sodium Allergy Verified 04/02/17 14:24 [From Cerebyx] phosphenytoin AdvReac Intermediate Shortness Uncoded 04/02/17 14:24 of Breath Home Medications: Ambulatory Orders Medication Instructions Recorded Carbamazepine [Carbatrol] 300 mg PO BID 09/11/13 Mirtazapine [Remeron] 15 mg PO HS 09/11/13 Topiramate [Topamax] 50 mg PO D 07/26/15 Topiramate [Topamax] 100 mg PO HS 07/26/15 Citalopram Hydrobromide [Celexa] 40 mg PO QD #30 tablet 10/02/15 Lacosamide [Vimpat] 100 mg PO D 10/18/16 Methocarbamol [Methocarbamol] 750 mg PO D 10/18/16 Levetiracetam [Levetiracetam] 500 mg PO BID 04/02/17 - SOCIAL HX Smoking History: non-smoker Alcohol Use: none Drug Use: none - FAMILY HX Family History: Yes (brother: seizure) - VITAL SIGNS Vital Signs: Vital Signs Temp Pulse Resp BP Pulse Ox 98.4 F 94 H 16 130/73 98 04/02/17 14:14 04/02/17 14:14 04/02/17 14:14 04/02/17 14:14 04/02/17 14:14 - REVIEWED ASSESSMENTS Nursing Assessment Reviewed: Yes Vitals Reviewed: Yes Progress - Progress Progress: NS 1 L IVF ED Results Lab/Radiology - Orders Orders: ED Orders Category Date Time Status Place IV Lock 1T Care 04/02/17 14:24 Ordered CBC/PLATELET/DIFF Routine Lab 04/02/17 Ordered CMP Routine Lab 04/02/17 Ordered UDS [DRUG SCREEN URINE MEDICAL ONLY] Routine Lab 04/02/17 Ordered NORMAL SALINE @ 1000 MLS/HR ( 1000ml BOLUS) Med 04/02/17 14:24 Ordered 0.9 % Sodium Chloride [Normal Saline] 1,000 ml IV Q1H General Adult Physical Exam - PHYSICAL EXAM GENERAL APPEARANCE: mild distress EENT: eye inspection normal, ENT inspection normal, pharynx normal NECK: normal inspection, supple RESPIRATORY: no resp distress, chest non-tender, breath sounds normal CVS: reg rate & rhythm, heart sounds normal ABDOMEN: soft, no organomegaly, normal bowel sounds BACK: normal inspection, no CVA tenderness SKIN: warm/dry, normal color EXTREMITIES: non-tender, normal range of motion, other (L foot in ortho boot s/ p foot surgery) NEURO: oriented X3, motor nml, sensation nml Discharge Clincal Impression: unwitnessed seizure Referrals: Tay Manning MD [Primary Care Provider] - Home Medications: Ambulatory Orders Carbamazepine [Carbatrol] 300 mg PO BID 09/11/13 Mirtazapine [Remeron] 15 mg PO HS 09/11/13 Topiramate [Topamax] 50 mg PO D 07/26/15 Topiramate [Topamax] 100 mg PO HS 07/26/15 Citalopram Hydrobromide [Celexa] 40 mg PO QD #30 tablet 10/02/15 Lacosamide [Vimpat] 100 mg PO D 10/18/16 Methocarbamol [Methocarbamol] 750 mg PO D 10/18/16 Levetiracetam [Levetiracetam] 500 mg PO BID 04/02/17 Condition: Stable Disposition: 01 HOME, SELF-CARE Decision to Admit: NO Decision Time: 15:24
[2017-04-02] MEDS: 0.9 % SODIUM CHLORIDE 1,000 ML IV ONE (14:37)
[2017-04-02 14:41] LABS: BASOPHILS % 0.9 (0.0-1.5); EOSINOPHILS % 1.4 % (0.0-6.8); MEAN CORPUSCULAR HEMOGLOBIN 28.9 pg (28.0-34.0); MEAN CORPUSCULAR VOLUME 87.7 fl (80.0-100.0); NEUTROPHILS # 3.5 # k/uL (1.4-7.7)
[2017-04-02 15:01] LABS: eGFR (African) > 60; eGFR (Non-African) > 60
[2017-04-02 16:07] VITALS: BP 105/56
[2017-04-03 05:34] LABS: APPEARANCE,URINE CLEAR (CLEAR); COLOR,URINE YELLOW (YELLOW); OCCULT BLOOD,URINE TRACE-INTACT (NEGATIVE)
[2017-04-03 05:35] LABS: AMPHETAMINE NEGATIVE ng/mL (<1000); BARBITURATES NEGATIVE ng/mL (<300); CANNABINOIDS NEGATIVE ng/mL (< 50); COCAINE NEGATIVE ng/mL (<150); METHAMPHETAMINE NEGATIVE ng/mL (<1000); METHYLENEDIOXYMETHAMPHETAMINE NEGATIVE ng/mL (<500); MORPHINE NEGATIVE ng/mL (<300); PH URINE 5.5 (5.0 - 8.0); UROBILINOGEN URINE 0.2 Eu (0.2-1.0)
== END 2017-04-02 15:35 | disposition home or self-care (01) ==
LOC: ED 14:07
DX: R56.9 Unspecified convulsions (principal)
CPT/HCPCS: 80053; 85025; J7030; 80377; 81002; 87086; 96360; 99283; G0481; S1016

== ENCOUNTER 2017-04-09 12:04 | Emergency (ER) | payer OTHER ==
--- NOTE | 2017-04-09 12:20 | ED Physician Documentation ---
General Adult - HISTORIAN Historian: patient - HPI Stated Complaint: c/o seizure Chief Complaint: General Adult Onset: minutes Timing: still present Severity: moderate Further Comments: yes (Pt is a 31 yo female who comes to ER for c/o seizure while at work at the [employer]. Seizure was unwitnessed. Pt answers questions easily, but says that she can't move, shortly after having moved from ambulance [place] to bed. ? pseudoseizures/psych) - ROS CONST: other ("feels bad all over") EYES/ENT: none CVS/RESP: none GI/: none MS/SKIN/LYMPH: none NEURO/PSYCH: other (c/o seizure) - PAST HX Past History: other (seizure d/o, depression) Allergies/Adverse Reactions: Allergies Allergy/AdvReac Type Severity Reaction Status Date / Time fosphenytoin sodium Allergy Verified 04/09/17 12:07 [From Cerebyx] phosphenytoin AdvReac Intermediate Shortness Uncoded 04/09/17 12:07 of Breath Home Medications: Ambulatory Orders Medication Instructions Recorded Carbamazepine [Carbatrol] 300 mg PO BID 09/11/13 Mirtazapine [Remeron] 15 mg PO HS 09/11/13 Topiramate [Topamax] 50 mg PO D 07/26/15 Topiramate [Topamax] 100 mg PO HS 07/26/15 Citalopram Hydrobromide [Celexa] 40 mg PO QD #30 tablet 10/02/15 Lacosamide [Vimpat] 100 mg PO D 10/18/16 Methocarbamol [Methocarbamol] 750 mg PO D 10/18/16 Levetiracetam [Levetiracetam] 1,000 mg PO BID 04/02/17 - SOCIAL HX Smoking History: non-smoker Alcohol Use: none Drug Use: none - FAMILY HX Family History: No - VITAL SIGNS Vital Signs: Vital Signs Temp Pulse Resp BP Pulse Ox 98.2 F 84 16 128/76 100 04/09/17 12:09 04/09/17 12:09 04/09/17 12:09 04/09/17 12:09 04/09/17 12:09 - REVIEWED ASSESSMENTS Nursing Assessment Reviewed: Yes Vitals Reviewed: Yes Progress - Progress Progress: Ativan 1 mg po improved General Adult Physical Exam - PHYSICAL EXAM GENERAL APPEARANCE: mild distress EENT: pharynx normal NECK: normal inspection, supple RESPIRATORY: no resp distress, chest non-tender, breath sounds normal CVS: reg rate & rhythm, heart sounds normal ABDOMEN: soft, no organomegaly, normal bowel sounds BACK: normal inspection, no CVA tenderness SKIN: warm/dry, normal color EXTREMITIES: non-tender, normal range of motion, no evidence of injury NEURO: oriented X3, motor nml, sensation nml Discharge Clincal Impression: Seizure disorder, unwitnessed seizure vs pseudoseizure Referrals: Tay Manning MD [Primary Care Provider] - Home Medications: Ambulatory Orders Carbamazepine [Carbatrol] 300 mg PO BID 09/11/13 Mirtazapine [Remeron] 15 mg PO HS 09/11/13 Topiramate [Topamax] 50 mg PO D 07/26/15 Topiramate [Topamax] 100 mg PO HS 07/26/15 Citalopram Hydrobromide [Celexa] 40 mg PO QD #30 tablet 10/02/15 Lacosamide [Vimpat] 100 mg PO D 10/18/16 Methocarbamol [Methocarbamol] 750 mg PO D 10/18/16 Levetiracetam [Levetiracetam] 1,000 mg PO BID 04/02/17 Condition: Stable Disposition: 01 HOME, SELF-CARE Decision to Admit: NO Decision Time: 13:39
[2017-04-09] MEDS: 0.9 % SODIUM CHLORIDE 1,000 ML IV ONE (12:34)
[2017-04-09 12:41] LABS: BASOPHILS % 0.7 (0.0-1.5); EOSINOPHILS % 1.9 % (0.0-6.8); MEAN CORPUSCULAR HEMOGLOBIN 28.6 pg (28.0-34.0); MEAN CORPUSCULAR VOLUME 86.4 fl (80.0-100.0); MONOCYTES % 5.4 % (0.0-11.0); NEUTROPHILS # 2.3 # k/uL (1.4-7.7)
[2017-04-09 12:58] LABS: eGFR (African) > 60; eGFR (Non-African) > 60
[2017-04-09] MEDS: LORazepam 2 MG/ML VIAL IVP ONE (13:20)
[2017-04-09 13:44] VITALS: BP 110/52
== END 2017-04-09 13:42 | disposition home or self-care (01) ==
LOC: ED 12:04
DX: G40.802 Other epilepsy, not intractable, without status epilepticus (principal)
CPT/HCPCS: 80053; 85025; J2060; J7030; 96361; 96374; 99283; S1016

== ENCOUNTER 2017-05-07 09:35 | Emergency (ER) | payer OTHER ==
[2017-05-07 10:36] LABS: APPEARANCE,URINE Cloudy (CLEAR); COLOR,URINE Yellow (YELLOW); OCCULT BLOOD,URINE Negative (NEGATIVE); UROBILINOGEN URINE 0.2 Eu (0.2-1.0)
[2017-05-07 10:41] LABS: EOSINOPHILS % 2.7 % (0.0-6.8); MEAN CORPUSCULAR HEMOGLOBIN 28.8 pg (28.0-34.0); MEAN CORPUSCULAR VOLUME 84.6 fl (80.0-100.0); MONOCYTES % 5.2 % (0.0-11.0); NEUTROPHILS # 2.8 # k/uL (1.4-7.7)
[2017-05-07 10:50] LABS: AMPHETAMINE NEGATIVE ng/mL (<1000); BARBITURATES NEGATIVE ng/mL (<300); CANNABINOIDS NEGATIVE ng/mL (< 50); COCAINE NEGATIVE ng/mL (<300); METHAMPHETAMINE NEGATIVE ng/mL (<1000); METHYLENEDIOXYMETHAMPHETAMINE NEGATIVE ng/mL (<500); OPIATES NEGATIVE ng/mL (<300)
[2017-05-07 10:54] LABS: eGFR (African) > 60; eGFR (Non-African) > 60
--- NOTE | 2017-05-07 10:57 | ED Physician Documentation ---
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 EMS has been called to the [employer] many times for this same scenario. Pt evidently has a seizure d/o and is on multiple seizure meds, but her seizures are not witnessed and pt never appears post-ictal. EMS has never been called to pt's home for seizures, only to her work place. Pt states that she does not recall much about the seizure and appears A&O in ER.) - ROS CONST: weakness EYES/ENT: none CVS/RESP: none GI/: none MS/SKIN/LYMPH: none NEURO/PSYCH: headache (mild), other (c/o seizure) - PAST HX Past History: other (seizure d/o) Allergies/Adverse Reactions: Allergies Allergy/AdvReac Type Severity Reaction Status Date / Time fosphenytoin sodium Allergy Verified 04/09/17 12:07 [From Cerebyx] phosphenytoin AdvReac Intermediate Shortness Uncoded 04/09/17 12:07 of Breath Home Medications: Ambulatory Orders Medication Instructions Recorded Carbamazepine [Carbatrol] 300 mg PO BID 09/11/13 Mirtazapine [Remeron] 15 mg PO HS 09/11/13 Topiramate [Topamax] 50 mg PO D 07/26/15 Topiramate [Topamax] 100 mg PO HS 07/26/15 Citalopram Hydrobromide [Celexa] 40 mg PO QD #30 tablet 10/02/15 Lacosamide [Vimpat] 100 mg PO D 10/18/16 Methocarbamol [Methocarbamol] 750 mg PO D 10/18/16 Levetiracetam [Levetiracetam] 1,000 mg PO BID 04/02/17 Cephalexin [Keflex] 500 mg PO Q12H #14 capsule 05/07/17 - SOCIAL HX Smoking History: quit less than 1 year - FAMILY HX Family History: No - VITAL SIGNS Vital Signs: Vital Signs Temp Pulse Resp BP Pulse Ox 98.2 F 82 16 106/47 98 05/07/17 09:35 05/07/17 09:35 05/07/17 09:35 05/07/17 09:35 05/07/17 09:35 - REVIEWED ASSESSMENTS Nursing Assessment Reviewed: Yes Vitals Reviewed: Yes Progress - Progress Progress: Rx Cephalexin 500 mg. Take one every 12 hrs for 7 days. (for UTI). ED Results Lab/Radiology - Lab Results Lab Results: Lab Results 05/07/17 05/07/17 05/07/17 10:27 10:27 10:27 WBC 4.80 K/ul K/ul (4.00-12.00) RBC 4.22 M/ul M/ul (3.90-5.20) Hgb 12.2 g/dL g/dL (12.0-16.0) Hct 35.7 % % (34.5-46.5) MCV 84.6 fl fl (80.0-100.0) MCH 28.8 pg pg (28.0-34.0) MCHC 34.0 g/dL g/dL (30.0-36.0) RDW 13.1 % % (11.3-14.3) Plt Count 273 K/mm3 K/mm3 (130-400) Neut % (Auto) 57.4 % % (39.0-79.0) Lymph % (Auto) 32.1 % % (16.0-50.0) [place] % (Auto) 5.2 % % (0.0-11.0) Eos % (Auto) 2.7 % % (0.0-6.8) Baso % (Auto) 1.0 (0.0-1.5) Neut # (Auto) 2.8 # k/uL # k/uL (1.4-7.7) Lymph # (Auto) 1.5 # k/uL # k/uL (0.6-4.0) [place] # (Auto) 0.2 # k/uL # k/uL (0.0-0.9) Eos # (Auto) 0.1 # k/uL # k/uL (0.0-0.6) Baso # (Auto) 0.0 # k/uL # k/uL (0.0-0.5) Reactive Lymphs % 1.6 % % (0.0-5.0) Reactive Lymphs # 0.1 # k/uL # k/uL (0.0-0.8) Sodium Potassium Chloride Carbon Dioxide BUN Creatinine Estimated Creat Clear Est GFR ( Amer) Est GFR (Non-Af Amer) Glucose Calcium Total Bilirubin AST ALT Alkaline Phosphatase Total Protein Albumin Urine Color Yellow (YELLOW) Urine Appearance Cloudy (CLEAR) Urine pH 7.0 (5.0 - 8.0) Ur Specific [place] 1.015 (1.010-1.030) Urine Protein Negative mg/dL mg/dL (NEGATIVE) Urine Ketones Negative mg/dL mg/dL (NEGATIVE) Urine Occult Blood Negative (NEGATIVE) Urine Nitrite Negative (NEGATIVE) Urine Bilirubin Negative (NEGATIVE) Urine Urobilinogen 0.2 Eu Eu (0.2-1.0) Ur Leukocyte Esterase 1+ H (NEGATIVE) Urine Glucose Negative mg/dL mg/dL (NEGATIVE) Opiates Screen Negative ng/mL ng/mL (<300) Oxycodone Screen Negative ng/mL ng/mL (<100) Methadone Screen Negative ng/mL ng/mL (<300) POC Urine Barbiturates Negative ng/mL ng/mL (<300) Tricyclic Antidepress Negative ng/mL ng/mL (<300) Phencyclidine Screen Negative ng/mL ng/mL (<25) Amphetamines Screen Negative ng/mL ng/mL (<1000) POC Ur Methamphetamine Negative ng/mL ng/mL (<1000) MDMA Negative ng/mL ng/mL (<500) Benzodiazepines Screen Non negative ng/mL H ng/mL (<300) Cocaine Screen Negative ng/mL ng/mL (<300) U Cannabinoids Screen Negative ng/mL ng/mL (< 50) 05/07/17 10:26 WBC RBC Hgb Hct MCV MCH MCHC RDW Plt Count Neut % (Auto) Lymph % (Auto) [place] % (Auto) Eos % (Auto) Baso % (Auto) Neut # (Auto) Lymph # (Auto) [place] # (Auto) Eos # (Auto) Baso # (Auto) Reactive Lymphs % Reactive Lymphs # Sodium 141 mmol/L mmol/L (136-145) Potassium 3.8 mmol/L mmol/L (3.5-5.0) Chloride 109 mmol/L mmol/L (98-110) Carbon Dioxide 24 mmol/L mmol/L (20-32) BUN 14 mg/dL mg/dL (10-26) Creatinine 0.8 mg/dL mg/dL (0.4-1.5) Estimated Creat Clear 216 Est GFR ( Amer) > 60 (60 - ) Est GFR (Non-Af Amer) > 60 (60 - ) Glucose 91 mg/dL mg/dL (70-99) Calcium 9.0 mg/dL mg/dL (8.5-10.5) Total Bilirubin 0.3 mg/dL mg/dL (0.2-1.2) AST 18 U/L U/L (0-41) ALT 11 U/L U/L (0-45) Alkaline Phosphatase 92 U/L U/L (46-116) Total Protein 7.0 g/dL g/dL (6.0-8.5) Albumin 4.4 g/dL g/dL (3.0-5.5) Urine Color Urine Appearance Urine pH Ur Specific [place] Urine Protein Urine Ketones Urine Occult Blood Urine Nitrite Urine Bilirubin Urine Urobilinogen Ur Leukocyte Esterase Urine Glucose Opiates Screen Oxycodone Screen Methadone Screen POC Urine Barbiturates Tricyclic Antidepress Phencyclidine Screen Amphetamines Screen POC Ur Methamphetamine MDMA Benzodiazepines Screen Cocaine Screen U Cannabinoids Screen - Orders Orders: ED Orders Category Date Time Status BENZODIAZEPINES, QUANT, URINE Routine Lab 05/07/17 10:26 Received CBC/PLATELET/DIFF Routine Lab 05/07/17 10:27 Completed CMP Routine Lab 05/07/17 10:26 Completed UDS [DRUG SCREEN URINE MEDICAL ONLY] Routine Lab 05/07/17 10:27 Completed URINALYSIS Routine Lab 05/07/17 10:27 Completed URINE CULTURE Routine Lab 05/07/17 10:27 Received General Adult Physical Exam - PHYSICAL EXAM GENERAL APPEARANCE: mild distress EENT: eye inspection normal, ENT inspection normal, pharynx normal NECK: normal inspection, supple RESPIRATORY: no resp distress, chest non-tender, breath sounds normal CVS: reg rate & rhythm, heart sounds normal ABDOMEN: soft, no organomegaly, normal bowel sounds BACK: normal inspection, no CVA tenderness SKIN: warm/dry, normal color EXTREMITIES: non-tender, normal range of motion, no evidence of injury NEURO: oriented X3, CN's nml as tested, motor nml, sensation nml Discharge Clincal Impression: c/o seizure UTI (urinary tract infection) Qualifiers: Urinary tract infection type: site unspecified Hematuria presence: without hematuria Qualified Code(s): N39.0 - Urinary tract infection, site not specified Prescriptions: Cephalexin [Keflex] 500 mg PO Q12H #14 capsule Referrals: Tay Manning MD [Primary Care Provider] - 2 Days Home Medications: Ambulatory Orders Carbamazepine [Carbatrol] 300 mg PO BID 09/11/13 Mirtazapine [Remeron] 15 mg PO HS 09/11/13 Topiramate [Topamax] 50 mg PO D 07/26/15 Topiramate [Topamax] 100 mg PO HS 07/26/15 Citalopram Hydrobromide [Celexa] 40 mg PO QD #30 tablet 10/02/15 Lacosamide [Vimpat] 100 mg PO D 10/18/16 Methocarbamol [Methocarbamol] 750 mg PO D 10/18/16 Levetiracetam [Levetiracetam] 1,000 mg PO BID 04/02/17 Cephalexin [Keflex] 500 mg PO Q12H #14 capsule 05/07/17 Condition: Stable Disposition: 01 HOME, SELF-CARE Decision to Admit: NO Decision Time: 10:58
[2017-05-07 11:47] VITALS: BP 127/69
== END 2017-05-07 11:10 | disposition home or self-care (01) ==
LOC: ED 09:35
DX: R56.9 Unspecified convulsions (principal); N39.0 Urinary tract infection, site not specified
CPT/HCPCS: 80053; 80377; 81002; 85025; 87086; 99283; G0481

== ENCOUNTER 2017-10-11 22:48 | Emergency (ER) | payer OTHER ==
--- NOTE | 2017-10-11 22:59 | ED Physician Documentation ---
General Adult - HISTORIAN Historian: patient - HPI Stated Complaint: over dose Chief Complaint: Suicide Attempt Onset: hours (1) Timing: still present Severity: mild Further Comments: yes (She reports she took 20 tabs of 10 mg Onfi tonight to attempt to kill herself. She states she is depressed and she has anxiety. She does not see a psychatrist. She does tell her PCP she is depressed and "he does nothing" . She denies any pain. She does report she does want to kill herself and she considered "cutting my wrists but I got scared" states she took 10 tabs of her "pain pills in May to attempt suicide but I didnt have enough pills" . She is alert and aware of date and time.) Last known Well Code/Unknown Code: Unknown - ROS CONST: no problems EYES/ENT: problems with vision (blurry ) GI/: none MS/SKIN/LYMPH: none NEURO/PSYCH: dizziness. denies: headache - PAST HX Past History: other (seizures, anxiety and insomina (per history on chart) ) Surgeries/Procedures: other (unknown ) Immunizations: referred to PCP Allergies/Adverse Reactions: Allergies Allergy/AdvReac Type Severity Reaction Status Date / Time fosphenytoin sodium Allergy Verified 10/11/17 23:00 [From Cerebyx] phosphenytoin AdvReac Intermediate Shortness Uncoded 10/11/17 23:00 of Breath Home Medications: Ambulatory Orders Medication Instructions Recorded Carbamazepine [Carbatrol] 300 mg PO BID 09/11/13 Mirtazapine [Remeron] 15 mg PO HS 09/11/13 Topiramate [Topamax] 100 mg PO D 07/26/15 Topiramate [Topamax] 100 mg PO HS 07/26/15 Citalopram Hydrobromide [Celexa] 40 mg PO QD #30 tablet 10/02/15 Lacosamide [Vimpat] 100 mg PO D 10/18/16 Methocarbamol [Methocarbamol] 750 mg PO D 10/18/16 Levetiracetam [Levetiracetam] 1,500 mg PO BID 04/02/17 - SOCIAL HX Smoking History: non-smoker Alcohol Use: none Drug Use: none - FAMILY HX Family History: No - VITAL SIGNS Vital Signs: Vital Signs Temp Pulse Resp BP Pulse Ox 127/69 05/07/17 11:10 - REVIEWED ASSESSMENTS Nursing Assessment Reviewed: Yes Vitals Reviewed: Yes Progress - Progress Progress: 2317: father at bedside. She is able to arouse by name. No new symptoms DG 2340: Father at bedside. Situation discussed with pt and father need for transfer. DG General Adult Physical Exam - PHYSICAL EXAM GENERAL APPEARANCE: no distress EENT: YOBANI NECK: normal inspection RESPIRATORY: no resp distress, chest non-tender, breath sounds normal CVS: reg rate & rhythm, heart sounds normal, equal pulses ABDOMEN: soft, normal bowel sounds SKIN: warm/dry, normal color EXTREMITIES: non-tender, normal range of motion, no evidence of injury, no edema NEURO: oriented X3, sensation nml, speech/cognition abnml (slurred speech ), depressed mood/affect (upset her bf broke up with her today ) Discharge Clincal Impression: Suicidal overdose Qualifiers: Encounter type: initial encounter Qualified Code(s): T50.902A - Poisoning by unspecified drugs, medicaments and biological substances, intentional self-harm , initial encounter Referrals: Tay Manning MD [Primary Care Provider] - 2 Days Additional Instructions: Discussed case with poison control [facility] and Dr Voss at the [facility] will be accepting provider DG Condition: Critical Disposition: 02 XFER SHT-TRM HOSP Decision to Admit: [id number] Date of Decison to Admit: 10/11/17 Decision Time: 23:12
[2017-10-11] MEDS ORDERED: 0.9 % SODIUM CHLORIDE 500 ML IV ONE (23:13)
[2017-10-11 23:28] LABS: BASOPHILS % 0.7 (0.0-1.5); EOSINOPHILS % 0.9 % (0.0-6.8); MEAN CORPUSCULAR HEMOGLOBIN 29.1 pg (28.0-34.0); MEAN CORPUSCULAR VOLUME 88.9 fl (80.0-100.0); MONOCYTES % 4.8 % (0.0-11.0)
[2017-10-11 23:39] LABS: eGFR (African) > 60; eGFR (Non-African) > 60
[2017-10-12 00:10] VITALS: BP 107/59
[2017-10-12 06:25] LABS: APPEARANCE,URINE CLEAR (CLEAR); COLOR,URINE YELLOW (YELLOW); OCCULT BLOOD,URINE NEGATIVE (NEGATIVE); PH URINE 6.5 (5.0 - 8.0); URINE HCG NEGATIVE (NEGATIVE); UROBILINOGEN URINE 0.2 Eu (0.2-1.0)
[2017-10-12 06:26] LABS: CANNABINOIDS NEGATIVE ng/mL (< 50); METHYLENEDIOXYMETHAMPHETAMINE NEGATIVE ng/mL (<500)
== END 2017-10-11 23:50 | disposition short-term general hospital (02) ==
LOC: ED 22:48
DX: T50.902A Poisoning by unspecified drugs, medicaments and biological substances, intentional self-harm, initial encounter (principal); X58.XXXA Exposure to other specified factors, initial encounter; Y92.9 Unspecified place or not applicable; Y93.9 Activity, unspecified; Y99.9 Unspecified external cause status
CPT/HCPCS: 80053; 80320; 80377; 81002; 81025; 85025; 96365; 99283; 99284; G0480; G0481

== ENCOUNTER 2017-12-22 09:50 | Emergency (ER) | payer OTHER ==
[2017-12-22] MEDS ORDERED: 0.9 % SODIUM CHLORIDE 1,000 ML IV ONE (10:00)
[2017-12-22 10:07] LABS: BASOPHILS % 0.6 (0.0-1.5); EOSINOPHILS % 3.9 % (0.0-6.8); MEAN CORPUSCULAR HEMOGLOBIN 29.5 pg (28.0-34.0); MEAN CORPUSCULAR VOLUME 92.8 fl (80.0-100.0); MONOCYTES % 5.3 % (0.0-11.0); NEUTROPHILS # 1.8 # k/uL (1.4-7.7)
--- NOTE | 2017-12-22 10:13 | ED Physician Documentation ---
General Adult - HISTORIAN Historian: patient - HPI Stated Complaint: "Sleepy" Chief Complaint: General Adult Additional Information: Says she feels sleepy and drools. Thinks she may have taken extra doses of her usual medications but can't remember. For example she may have taken her AM meds twice or she may have taken both he Doe and PM medsi this morning. She is not sure. Brought from work/casino per EMS. - ROS CONST: no problems - PAST HX Past History: other (anxiety, seizures) Allergies/Adverse Reactions: Allergies Allergy/AdvReac Type Severity Reaction Status Date / Time fosphenytoin sodium Allergy Verified 10/11/17 23:00 [From Cerebyx] phosphenytoin AdvReac Intermediate Shortness Uncoded 10/11/17 23:00 of Breath Home Medications: Ambulatory Orders Medication Instructions Recorded Carbamazepine [Carbatrol] 300 mg PO BID 09/11/13 Carbamazepine [Carbamazepine ER] 300 mg PO BID 12/22/17 Clobazam [Onfi] 10 mg PO BID 12/22/17 Hydroxyzine HCl [Atarax] 25 mg PO QID 12/22/17 Lacosamide [Vimpat] 100 mg PO BID 12/22/17 Levetiracetam [Levetiracetam] 500 mg PO TID 12/22/17 Mirtazapine [Mirtazapine] 15 mg PO HS 12/22/17 Quetiapine Fumarate [Quetiapine 300 mg PO BID 12/22/17 Fumarate] Trazodone HCl 50 mg PO HS 12/22/17 Venlafaxine HCl [Venlafaxine HCl 150 mg PO DAILY 12/22/17 ER] - SOCIAL HX Smoking History: quit greater than 1 year - FAMILY HX Family History: No - VITAL SIGNS Vital Signs: Vital Signs Temp Pulse Resp BP Pulse Ox 97.1 F L 85 16 114/76 98 12/22/17 09:50 12/22/17 09:50 12/22/17 09:50 12/22/17 09:50 12/22/17 09:50 - REVIEWED ASSESSMENTS Nursing Assessment Reviewed: Yes Vitals Reviewed: Yes Progress - Progress Progress: See sheet with half life, max daily dose of each med pt takes. She was observed for several hours. Ortho's unremarkable. She ambulates w/o difficulty. ED Results Lab/Radiology - Lab Results Lab Results: Lab Results 12/22/17 10:00 WBC 3.80 K/ul L K/ul (4.00-12.00) RBC 4.08 M/ul M/ul (3.90-5.20) Hgb 12.0 g/dL g/dL (12.0-16.0) Hct 37.9 % % (34.5-46.5) MCV 92.8 fl fl (80.0-100.0) MCH 29.5 pg pg (28.0-34.0) MCHC 31.8 g/dL g/dL (30.0-36.0) RDW 13.3 % % (11.3-14.3) Plt Count 317 K/mm3 K/mm3 (130-400) Neut % (Auto) 47.4 % % (39.0-79.0) Lymph % (Auto) 40.5 % % (16.0-50.0) Franklin % (Auto) 5.3 % % (0.0-11.0) Eos % (Auto) 3.9 % % (0.0-6.8) Baso % (Auto) 0.6 (0.0-1.5) Neut # (Auto) 1.8 # k/uL # k/uL (1.4-7.7) Lymph # (Auto) 1.5 # k/uL # k/uL (0.6-4.0) Franklin # (Auto) 0.2 # k/uL # k/uL (0.0-0.9) Eos # (Auto) 0.2 # k/uL # k/uL (0.0-0.6) Baso # (Auto) 0.0 # k/uL # k/uL (0.0-0.5) Reactive Lymphs % 2.4 % % (0.0-5.0) Reactive Lymphs # 0.1 # k/uL # k/uL (0.0-0.8) - Orders Orders: ED Orders Category Date Time Status Place IV Lock 1T Care 12/22/17 10:00 Active ALCOHOL MEDICAL USE ONLY Stat Lab 12/22/17 10:00 Received CARBAMAZEPINE LEVEL Routine Lab 12/22/17 Ordered CBC/PLATELET/DIFF Routine Lab 12/22/17 10:00 Completed CMP Routine Lab 12/22/17 10:00 Received DRUG SCREEN URINE MEDICAL ONLY Routine Lab 12/22/17 Ordered LEVETIRACETAM(KEPPRA) LEVEL Stat Lab 12/22/17 Ordered URINALYSIS Routine Lab 12/22/17 Ordered 0.9 % Sodium Chloride [Normal Saline] 1,000 ml Med 12/22/17 10:00 Active IV Q1H General Adult Physical Exam - PHYSICAL EXAM GENERAL APPEARANCE: drowsy, appropriate, talks in full sentences EENT: eye inspection normal, ENT inspection normal (except poor dentition), pharynx normal, other (no drooling) NECK: normal inspection RESPIRATORY: no resp distress, breath sounds normal CVS: reg rate & rhythm, heart sounds normal ABDOMEN: soft, normal bowel sounds, non-tender BACK: normal inspection, no CVA tenderness (no vertebral tenderness) SKIN: warm/dry, normal color EXTREMITIES: no evidence of injury NEURO: CN's nml as tested, motor nml, sensation nml Discharge Clincal Impression: Drowsy Referrals: Tay Manning MD [Primary Care Provider] - 2 Days Additional Instructions: Take your medications only as prescribed. Condition: Good Disposition: 01 HOME, SELF-CARE Decision to Admit: NO Decision Time: 12:44
[2017-12-22 10:17] LABS: eGFR (African) > 60; eGFR (Non-African) > 60
[2017-12-22 12:58] VITALS: BP 102/73
[2017-12-22 13:28] LABS: APPEARANCE,URINE CLEAR (CLEAR); CANNABINOIDS NEGATIVE ng/mL (< 50); COLOR,URINE RED (YELLOW); METHYLENEDIOXYMETHAMPHETAMINE NEGATIVE ng/mL (<500); OCCULT BLOOD,URINE 3+ (NEGATIVE); PH URINE 6.5 (5.0 - 8.0); UROBILINOGEN URINE 0.2 Eu (0.2-1.0)
== END 2017-12-22 12:56 | disposition home or self-care (01) ==
LOC: ED 09:50
DX: R40.0 Somnolence (principal)
CPT/HCPCS: 80053; 80156; 80177; 80320; 80377; 81002; 85025; J7030; 96365; 99283; G0480; G0481; S1016

== ENCOUNTER 2018-11-06 08:45 | Emergency (ER) | payer OTHER ==
[2018-11-06] MEDS ORDERED: ACETAMINOPHEN 325 MG TABLET PO ONE (08:59)
--- NOTE | 2018-11-06 08:59 | ED Physician Documentation ---
Seizure - HISTORIAN Historian: patient, paramedics ([facility]) - [facility] Chief Complaint: Seizure Additional Information: Patient is a 33-year-old female with numerous ER visits for "pseudo" seizures. She states that she was at work and was feeling a little weak- and states that she sat down and had a seizure- she remembers everything- she states it was more of hands twitching. She has no loss of bowel/bladder- was never unresponsive- states she was awake the entire time- says she gets these all the time. She just goes home and rests. She asked for some Tylenol for a mild headache. Timing/Onset/Duration: single episode Last known Well Date: 11/06/18 Last Known Well Time: 08:00 Last known Well Code/Unknown Code: Unknown (Never was unresponsive) Witnessed By: bystander Preceding Symptoms: none Character of Seizure(s): shaking in one area (hand). denies: lost consciousness, unresponsiveness, incontinence of urine, incontinence of stool Postictal Symptoms: none (A&O x 4) Location of Injury: none Further Comments: no - ROS NEURO/PSYCH: headache (mild headache) EYES/ENT: none CVS/RESP: none GI/: denies: adominal pain, nausea, vomiting MS/SKIN/LYMPH: none - PAST HX Previous seizure/seizure disorder: frequent (Always while at work) Etiology: other ("pseudo") Other History: psychiatric disorder Surgeries/Procedures: none Immunizations: UTD Allergies/Adverse Reactions: Allergies Allergy/AdvReac Type Severity Reaction Status Date / Time fosphenytoin sodium Allergy Verified 10/11/17 23:00 [From Cerebyx] phosphenytoin AdvReac Intermediate Shortness Uncoded 10/11/17 23:00 of Breath Home Medications: Ambulatory Orders Medication Instructions Recorded Carbamazepine [Carbatrol] 300 mg PO BID 09/11/13 Carbamazepine [Carbamazepine ER] 300 mg PO BID 12/22/17 Clobazam [Onfi] 10 mg PO BID 12/22/17 Hydroxyzine HCl [Atarax] 25 mg PO QID 12/22/17 Lacosamide [Vimpat] 100 mg PO BID 12/22/17 Levetiracetam 500 mg PO TID 12/22/17 Mirtazapine 15 mg PO HS 12/22/17 Quetiapine Fumarate 300 mg PO BID 12/22/17 Trazodone HCl 50 mg PO HS 12/22/17 Venlafaxine HCl [Venlafaxine HCl 150 mg PO DAILY 12/22/17 ER] - SOCIAL HX Smoking History: other (Vapes) Alcohol Use: none Drug Use: none - FAMILY HX Family History: none - VITAL SIGNS Vital Signs: Vital Signs Temp Pulse Resp BP Pulse Ox 102/73 12/22/17 12:56 - REVIEWED ASSESSMENTS Nursing Assessment Reviewed: Yes Vitals Reviewed: Yes ED Results Lab/Radiology - Orders Orders: ED Orders Category Date Time Status Acetaminophen [Tylenol] Med 11/06/18 08:59 Once 650 mg PO NOW ONE Seizure Physical Exam - Physical Exam General Appearance: no acute distress, alert Altered Mental Status Higher Functions: alert, oriented x3, mood/affect nml EENT: PERRL, no apparent trauma, pharynx nml Neck/Back: normal inspection Respiratory: no resp. distress, breath sounds nml CVS: reg rate & rhythm, heart sounds normal, equal pulses Abdomen: non-tender, nml bowel sounds Skin: warm/dry, normal color Extremities: normal range of motion, non-tender, normal inspection, normal capillary refill Observed Seizure Activity in ED: focal Discharge Clincal Impression: Pseudoseizures Referrals: Tay Manning MD [Primary Care Provider] - 2 Days Additional Instructions: Increase fluid intake May use Tylenol for headaches Follow up with Primary Care Provider as needed Condition: Good Disposition: 01 HOME, SELF-CARE Decision to Admit: NO Decision Time: 09:04
[2018-11-06 09:15] VITALS: BP 106/76
== END 2018-11-06 09:11 | disposition home or self-care (01) ==
LOC: ED 08:45
DX: G40.89 Other seizures (principal)
CPT/HCPCS: 99282; 99283

== ENCOUNTER 2019-02-10 07:40 | Emergency (ER) | payer OTHER | END 2019-02-10 09:07 | LOC: ED 07:40 | DX: G40.909 Epilepsy, unspecified, not intractable, without status epilepticus (principal) | CPT/HCPCS: 99282 ==